=== PATIENT | male | born 1975 | race Two or more races ===

== ENCOUNTER 2018-11-29 11:34 | Emergency (ER) | payer MEDICARE, MEDICAID ==
[~2018-11-29] VITALS: Ht 121.9 cm; Wt 45.4 kg
[~2018-11-29 11:34] MED LIST: CEPHALEXIN500 MG ORAL
--- NOTE | 2018-11-29 11:34 | NUR ---
ED Nurse Note: Pt brought in by ambulance from [facility] due to flu like symptoms, Nausea. chill and headache x 1 day. SNF staff gave norco 5/325mg this morning. Denies headache at this time. Pt is AAO x4, non ambulatory (bilateral BKA) with non labored breathing. Noted wounds on left elbow, left wrist and posterior right and left thighs.
--- NOTE | 2018-11-29 11:44 | Emergency Room Report ---
History of Present Illness General Chief Complaint: Flu Like Symptoms Source: Patient, Medical Record Present Illness HPI 43-year-old malewith a history of paraplegia, suprapubic catheter, colostomy bag , sent from [facility] for headache, chills, myalgias, nausea for 2 days, given analgesics prior to arrival.patient reports that he had his suprapubic catheter changed just 2 weeks ago. He does report mild cough, denies shortness of breath,Syncope, chest pain, bladder spasms. Allergies: Coded Allergies: CEPHALEXIN (Unverified Allergy, Unknown, 11/29/18) HALOPERIDOL (Unverified Allergy, Unknown, 11/29/18) PROCAINE (Unverified Allergy, Unknown, 11/29/18) Patient History Past Medical History: see triage record Reviewed Nursing Documentation: PMH: Agreed; PSxH: Agreed Review of Systems All Other Systems: negative except mentioned in HPI Physical Exam Vital Signs Date Time Temp Pulse Resp B/P (MAP) Pulse Ox O2 Delivery O2 Flow Rate FiO2 11/29/18 11:24 97.3 74 16 117/74 95 Room Air Sp02 EP Interpretation: reviewed, normal General Appearance: no apparent distress, alert, non-toxic Head: normocephalic Eyes: bilateral eye normal inspection, bilateral eye PERRL, bilateral eye EOMI ENT: normal ENT inspection, hearing grossly normal, normal pharynx, no angioedema, normal voice, moist mucus membranes Neck: normal inspection, full range of motion, supple, supple/symm/no masses Respiratory: chest non-tender, lungs clear, normal breath sounds, chest symmetrical, palpation of chest normal Cardiovascular #1: normal peripheral pulses, regular rate, rhythm Cardiovascular #2: 2+ radial (R), 2+ radial (L) Gastrointestinal: normal inspection, non tender, soft, no mass, no guarding, no rebound, other - Left-sided colostomy bag with normal brown urine, no overlying erythema warmth or tenderness, suprapubic catheter site with no erythema, clean, dry Rectal: deferred Genitourinary: normal inspection, no CVA tenderness Musculoskeletal: back normal, non-tender Neurologic: alert, responsive, emergency department III-XII nml as tested, motor strength/tone normal - All Extremities with mild weakness, sensory intact, speech normal Psychiatric: judgement/insight normal, memory normal, mood/affect normal Skin: normal color, no rash, warm/dry, normal turgor Lymphatic: no adenopathy Medical Decision Making Diagnostic Impression: Primary Impression: Influenza-like symptoms ER Course Patient refusing IV, refused lab draws, but did have a chest x-ray which is fairly unremarkable, and he will leave AGAINST MEDICAL ADVICE back to intermediate facility. He understands that I have not evaluated him for such as sepsis since he refused this and he is at risk of . Chest X-Ray Diagnostic Results Chest X-Ray Diagnostic Results : Chest X-Ray Ordered: Yes # of Views/Limited/Complete: 1 View Indication: Other EP Interpretation: No Impression: No acute disease - read by radiologist Last Vital Signs Date Time Temp Pulse Resp B/P (MAP) Pulse Ox O2 Delivery O2 Flow Rate FiO2 11/29/18 11:24 97.3 74 16 117/74 95 Room Air BIRGIT WONG M.D Nov 29, 2018 11:44
[2018-11-29] MEDS ORDERED: Sodium Chloride 1,400 ML IVLG ONE (11:45)
[2018-11-29] MEDS ORDERED: NORCO 5-325 TA1 EACH ORAL (11:52)
[2018-11-29] MEDS ORDERED: SILVADENE20 GM TP (11:52)
[2018-11-29] MEDS ORDERED: PROTONIX40 MG ORAL (11:52)
[2018-11-29] MEDS ORDERED: TRAMADOL HCL50 MG ORAL (11:52)
[2018-11-29] MEDS ORDERED: CLINDAMYCIN HC150 MG ORAL (11:52)
[2018-11-29] MEDS ORDERED: SENNA8.6 M2 PO (11:52)
[2018-11-29] MEDS ORDERED: Cefepime HCl 1 GM in NS 55 ML IV SCH (12:00)
--- NOTE | 2018-11-29 12:06 | NUR ---
ED Nurse Note: Pt refused blood and urine test, EKG. Pt only wants Flu swab test. Dr Padilla notified. Pt signed AMA form.
--- NOTE | 2018-11-29 12:15 | NUR ---
ED Nurse Note: Pt refused antibiotics and NS medication. Dr Padilla is aware.
--- NOTE | 2018-11-29 12:39 | Diagnostic Imaging Report ---
EXAM: XR Chest, 1 View CLINICAL HISTORY: COUGH TECHNIQUE: Frontal view of the chest. COMPARISON: No relevant prior studies available. FINDINGS: Lungs: Mildly increased interstitial markings. The lungs are otherwise clear without focal consolidation. Pleural space: Unremarkable. The costophrenic angles are sharp. No visible pneumothorax. Heart: Unremarkable. No cardiomegaly. Mediastinum: Unremarkable. Bones/joints: Partial visualization of lower cervical spine fixation hardware. Tubes, lines and devices: Telemetry leads overlie the thorax. IMPRESSION: Mildly increased interstitial markings. This is nonspecific but may suggest mild pulmonary vascular congestion or a mild interstitial pneumonitis. No focal consolidation.
[2018-11-29 12:44] VITALS: BP 110/68
--- NOTE | 2018-11-29 13:06 | NUR ---
patient refuses to have labs done wants to go back to longterm . has been notified . per dr cardenas he will discharge the patient [facility] called
[2018-11-29 13:19] VITALS: BP 110/68
== END 2018-11-29 13:00 | disposition home or self-care (01) ==
LOC: EDBD 11:34 → EMR 12:00
DX: J11.1 Influenza due to unidentified influenza virus with other respiratory manifestations (principal); Z88.1 Allergy status to other antibiotic agents; Z88.8 Allergy status to other drugs, medicaments and biological substances
CPT/HCPCS: 71045; 86710; 93005; 96374; 99284

== ENCOUNTER 2019-06-07 10:16 | Inpatient (IN) | payer MEDICARE, MEDICAID ==
[~2019-06-07] VITALS: Ht 152.4 cm; Wt 73.9 kg
[~2019-06-07 10:16] MED LIST changes: +CLINDAMYCIN HC150 MG ORAL; +NORCO 5-325 TA1 EACH ORAL; +PROTONIX40 MG ORAL; +SENNA8.6 M2 PO; +SILVADENE20 GM TP; +TRAMADOL HCL50 MG ORAL
[2019-06-07 10:30] VITALS: BP 111/74
--- NOTE | 2019-06-07 10:30 | NUR ---
ED Nurse Note: Patient brought in by ambulance from the [facility] c/o pain located on his lower back, patient presents with multiple wounds, one on his left elbow that is open and draining, one on his lower back that extends to his hamstrings, unstageable however it is draining, patient states that he recently signed out from [facility] due to no improvement in his wound. patient also presents with supra pubic catheter that is draining as well a a colostomy bag. patient is alert and oriented x4 and has a wheelchair.
[2019-06-07] MEDS ORDERED: Vancomycin 1.5 GM in NS 275 ML IVPB ONE (10:45)
[2019-06-07] MEDS ORDERED: Piperacillin/Tazobactam 3.375 GM in NS 110 ML IVPB ONE (10:45)
[2019-06-07] MEDS ORDERED: HYDROcodone/Acetamin 7.5/325 tab ORAL ONE (10:45)
--- NOTE | 2019-06-07 10:45 | NUR ---
ED Nurse Note: Patient refused any form of IV, states that he will not tolerate IV on his arm. Dr. Jenkins notified and aware
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
--- NOTE | 2019-06-07 11:45 | NUR ---
ED Nurse Note: Called Laboratory for a blood draw
[2019-06-07 12:41] VITALS: BP_SYST 107; BP_SYST 120; BP_DIAS 70
--- NOTE | 2019-06-07 13:00 | NUR ---
ED Nurse Note: Dr. Dunlap at bedside, states that the patient is okay to go up with no IV access, patient will be getting a picc line tomorrow
[2019-06-07 13:46] LABS: HEMATOCRIT 33.1 % (42.0-52.0); HEMOGLOBIN 9.3 G/DL (14.2-18.0); MEAN CORPUSCULAR VOLUME 73 FL (80-99); PLATELET COUNT 348 K/UL (150-450); RED BLOOD COUNT 4.54 M/UL (4.70-6.10); RED CELL DISTRIBUTION WIDTH 16.4 % (11.6-14.8); WHITE BLOOD COUNT 10.9 K/UL (4.8-10.8)
[2019-06-07 13:59] LABS: ANION GAP 12 mmol/L (5-15); BLOOD UREA NITROGEN 8 mg/dL (7-18); CALCIUM 8.9 MG/DL (8.5-10.1); CARBON DIOXIDE 22 MMOL/L (21-32); CHLORIDE 101 MMOL/L (98-107); CREATININE 0.8 MG/DL (0.55-1.30); POTASSIUM 3.7 MMOL/L (3.5-5.1); SODIUM 135 MMOL/L (136-145)
[2019-06-07 14:06] LABS: ALANINE AMINOTRANSFERASE 13 U/L (12-78); ALBUMIN 2.7 G/DL (3.4-5.0); ALBUMIN/GLOBULIN RATIO 0.5 (1.0-2.7); ALKALINE PHOSPHATASE 111 U/L (46-116); ASPARTATE AMINO TRANSFERASE 25 U/L (15-37); BILIRUBIN,TOTAL 0.7 MG/DL (0.2-1.0); CREATINE KINASE 106 U/L (26-308); PHOSPHORUS 3.6 MG/DL (2.5-4.9)
[2019-06-07] MEDS ORDERED: Lidocaine 1% MPF 10mg/ml 5ml INJ ONE (14:15)
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
[2019-06-07 14:23] VITALS: BP 93/51
[2019-06-07] MEDS ORDERED: Milk of Magnesia 30ml Ud ORAL PRN (14:30)
[2019-06-07] MEDS ORDERED: Mylanta II UD 30ml ORAL PRN (14:30)
--- NOTE | 2019-06-07 14:45 | NUR ---
TRANSFER TO FLOOR: Patient transferred to Med-Surg as ordered, per report given to LAURA Bauer
[2019-06-07] MEDS ORDERED: UNOBMED (14:59)
[2019-06-07] MEDS: LORazepam 1mg tab ORAL PRN ×2 (15:42→20:03)
--- NOTE | 2019-06-07 15:45 | NUR ---
NURSE NOTES: Received pt at room 416-1. Patient upset, anxious, refused bedside RN to check his belongings, also refused physical examination and pictures. Given Ativan PO as ordered PRN and per pt request. Pt refused to answer nurses questioning for admission assessments, saying: I'm tired, I want to sleep now. CASH SALES AUDIT CLERK Jolanta witness.
[2019-06-07 16:00] VITALS: BP 123/63
--- NOTE | 2019-06-07 16:08 | NUR ---
NURSE NOTES: Patient transferred from ER via gurney. Report received from Pallavi Marie reviewed with patient. Per patient no lim or credit cards. Patient has [employer] phone and head phones at bedside. Patient has suprapubic catheter. Patient is alert and oriented. Call light placed within reach. Will continue to monitor.
[2019-06-07] MEDS ORDERED: Heparin1,000 units/500ml Premix(Conc:2 units/ml) IV PRN (16:58)
[2019-06-07] MEDS ORDERED: Lidocaine 1% Plain 30 ml INJ PRN (16:58)
--- NOTE | 2019-06-07 18:31 | NUR ---
NURSE NOTES: not done initial wound assessment as pt didn't allow nurse to see his wounds or take pic of them.
--- NOTE | 2019-06-07 19:13 | NUR ---
HAND-OFF: Report given to LAURA Yeh.
--- NOTE | 2019-06-07 20:00 | NUR ---
NURSE NOTES: Pt received from outgoing nurse LAURA Santos. Pt is in bed sitting down. Pt is anxious, implosive, aggressive, resistive to care. Pt complains of severe headache, requesting stronger pain medication. Dr. Mendez was called and received order for Percocet 10/325mg po q4hrs for severe pain. Pt refuses to have physical assessment done. pt refuses heparin for dvt prophylaxis and Colace. Pt has suprapubic cath which is draining yellow urine. Colostomy bag draining brown stool. Pt refuses to allow RN to empty colostomy bag. Pt refuses to allow RN to assess wound and provide wound care. Photos of wounds were taken in the ER, pt refuses wound pictures now. Pt is provided with reality orientation and education. Fall precaution in place. Bed alarm on. Bed locked low in position,side rails up and call light within reach. Pt will be monitored.
[2019-06-07] MEDS: Heparin 5000 units/ml inj SUBQ SCH (20:35)
[2019-06-07] MEDS: Docusate 100mg cap ORAL SCH (20:35)
[2019-06-07] MEDS: Piperacillin/Tazobactam 3.375 GM in NS 110 ML IVPB SCH (22:00)
[2019-06-08] VITALS: BP 115/74
--- NOTE | 2019-06-08 02:53 | NUR ---
NURSE NOTES: Pt is in bed, asleep. No acute distress noted.
[2019-06-08] MEDS: Piperacillin/Tazobactam 3.375 GM in NS 110 ML IVPB SCH ×3 (05:05→21:04)
[2019-06-08] MEDS: LORazepam 1mg tab ORAL PRN ×4 (05:32→21:03)
--- NOTE | 2019-06-08 06:46 | NUR ---
NURSE NOTES: Pt refused blood draw for labs and wound care . Colostomy bag replaced. Pt refuses to be cleaned.
--- NOTE | 2019-06-08 07:15 | NUR ---
HAND-OFF: Report given to Vicky García RN.
--- NOTE | 2019-06-08 07:52 | NUR ---
NURSE NOTES: Patient received in stable condition, eating breakfast in bed. Alert and oriented. PICC line scheduled to be placed today. No apparent signs of distress noted. Bed locked in lowest position, call light placed within reach. Will continue to monitor.
[2019-06-08 08:00] VITALS: BP 120/77
[2019-06-08] MEDS: Heparin 5000 units/ml inj SUBQ SCH ×2 (09:00→21:00)
[2019-06-08] MEDS: Docusate 100mg cap ORAL SCH ×2 (09:00→21:00)
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
--- NOTE | 2019-06-08 11:50 | NUR ---
P.T Note: P.T evaluation completed . Pt is alert O x 4. Pt. presented incomplete quadriplegia from old hx of CVA, B flexion contracture of hand/fingers and B AKA limiting his functional mobilities and self care ability. Pt is totally dependent in areas of bed mobilities and transfer activities as he was prior to admission where nursing staff uses the [facility] for OOB to W/C transfer. Pt is already at baseline function and not a candidate for skilled P.T services. [facility] P[facility]T service. Thank you for this referral. Addendum: 06/08/19 at 1204 by ARIEL VALVERDE PT P.T Note: P.T evaluation completed . Pt is alert O x 4. Pt. presented incomplete quadriplegia from old hx of CVA, B flexion contracture of hand/fingers and B AKA limiting his functional mobilities and self care ability. Pt is totally dependent in areas of bed mobilities and transfer activities as he was prior to admission where nursing staff uses the [facility] for OOB to W/C transfer in the facility where he came from . Pt is already at baseline function and not a candidate for skilled P.T services. [facility] service. Thank you for this referral.
[2019-06-08 12:00] VITALS: BP 124/80
--- NOTE | 2019-06-08 13:23 | Surgery Progress Note ---
Surgery Progress Note Subjective Additional Comments Patient seen and examined bedside. No acute events. Labs noted. Leukocytosis and elevated ESR and CRP. Abnormal electrolytes. Patient still losing foul- smelling seropurulent fluid. Objective Last 24 Hour Vital Signs Date Time Temp Pulse Resp B/P (MAP) Pulse Ox O2 Delivery O2 Flow Rate FiO2 06/08/19 12:00 98.3 85 20 124/80 (95) 98 06/08/19 09:00 Room Air 06/08/19 08:00 98.8 90 20 120/77 (91) 99 06/08/19 06:02 98.9 06/08/19 00:00 100.4 93 20 115/74 (88) 98 06/07/19 21:00 Room Air 06/07/19 18:00 Room Air 06/07/19 16:00 97.3 104 25 123/63 (83) 96 06/07/19 14:45 98.7 95 16 93/51 96 Room Air 06/07/19 14:23 98.7 90 16 93/51 96 Room Air I&O Intake and Output 06/07/19 06/08/19 19:00 07:00 Intake Total 50 ml Output Total 1400 ml Balance 50 ml -1400 ml Intake Oral 50 ml Output Urine Total 800 ml Stool Total 600 ml Dressing: saturated Wound: other Drains: other Cardiovascular: RSR Respiratory: clear Abdomen: soft, non-tender, present bowel sounds, other - Colostomy Extremities: other - superpubic catheter bilateral amputations Laboratory Tests Test 06/07/19 13:25 06/07/19 13:55 White Blood Count 10.9 K/UL (4.8-10.8) H Red Blood Count 4.54 M/UL (4.70-6.10) L Hemoglobin 9.3 G/DL (14.2-18.0) L Hematocrit 33.1 % (42.0-52.0) L Mean Corpuscular Volume 73 FL (80-99) L Mean Corpuscular Hemoglobin 20.5 PG (27.0-31.0) L Mean Corpuscular Hemoglobin Concent 28.2 G/DL (32.0-36.0) L Red Cell Distribution Width 16.4 % (11.6-14.8) H Platelet Count 348 K/UL (150-450) Mean Platelet Volume 6.3 FL (6.5-10.1) L Neutrophils (%) (Auto) % (45.0-75.0) Lymphocytes (%) (Auto) % (20.0-45.0) Monocytes (%) (Auto) % (1.0-10.0) Eosinophils (%) (Auto) % (0.0-3.0) Basophils (%) (Auto) % (0.0-2.0) Differential Total Cells Counted 100 Neutrophils % (Manual) 89 % (45-75) H Lymphocytes % (Manual) 4 % (20-45) L Monocytes % (Manual) 7 % (1-10) Eosinophils % (Manual) 0 % (0-3) Basophils % (Manual) 0 % (0-2) Band Neutrophils 0 % (0-8) Platelet Estimate Adequate Platelet Morphology Normal Hypochromasia 1+ Anisocytosis 1+ Microcytosis 1+ Lactic Acid Level 0.80 mmol/L (0.4-2.0) C-Reactive Protein, Quantitative > 70.0 mg/dL (0.00-0.90) H Erythrocyte Sedimentation Rate 88 MM/HR (0-15) H Sodium Level 135 MMOL/L (136-145) L Potassium Level 3.7 MMOL/L (3.5-5.1) Chloride Level 101 MMOL/L (98-107) Carbon Dioxide Level 22 MMOL/L (21-32) Anion Gap 12 mmol/L (5-15) Blood Urea Nitrogen 8 mg/dL (7-18) Creatinine 0.8 MG/DL (0.55-1.30) Estimat Glomerular Filtration Rate > 60 mL/min (>60) Glucose Level 106 MG/DL (74-106) Calcium Level 8.9 MG/DL (8.5-10.1) Phosphorus Level 3.6 MG/DL (2.5-4.9) Magnesium Level 2.0 MG/DL (1.8-2.4) Total Bilirubin 0.7 MG/DL (0.2-1.0) Aspartate Amino Transf (AST/SGOT) 25 U/L (15-37) Alanine Aminotransferase (ALT/SGPT) 13 U/L (12-78) Alkaline Phosphatase 111 U/L (46-116) Total Creatine Kinase 106 U/L (26-308) Total Protein 8.6 G/DL (6.4-8.2) H Albumin 2.7 G/DL (3.4-5.0) L Globulin 5.9 g/dL Albumin/Globulin Ratio 0.5 (1.0-2.7) L Plan Problems: (1) Infected ulcer of skin Assessment & Plan: This is a 43-year-old male wheelchair-bound bilateral lower extremity amputation with chronic infected large sacral decubitus ulcer. Patient with colostomy and suprapubic catheter. Patient has had these wounds for a long time and they have been infected for a significant period time as well. Patient is fairly noncompliant with care plans. Discussions had with patient prior for care plan and appropriate wound care but patient continues to be fairly noncompliant with care. Patient recently left lumbar rehab as he felt wounds are being worse and he was not being cared for properly. He presents here and even in the emergency department is fairly noncompliant with care as he refuses IV access and states that he can be ready to leave if he does not get the care that he wants in the manner that he wants. Large stage IV sacral decubitus ulcer with foul smell, seropurulent drainage, exposed bone, macerated periwound, or cyst seen prior Left elbow stage IV decubitus ulcer with 100% slough, serous drainage, foul odor Intact colostomy functional viable with parastomal hernia Suprapubic catheter with insertion site chronic poor wound healing wound Recommend admission for further care and management. Will continue to assess and come up with full care plan for patient and his management. Still do recommend tertiary center as a small commute hospital does not have the resources and the ability to care for such extensive large wound and patient with complex medical and surgical history we will continue to treat patient to the best of abilities with the resources available at this time. PICC line Abx will likely need OR CT Pelvis Thank you for allowing me participate patient's care (2) Decubitus skin ulcer (3) Elbow pain Assessment & Plan: Related to large decubitus ulcer that is open with 100% slough. We will continue with local wound care. Recommend antibiotics. will likely need debridement. MRI ordered Additional Comments ID input appreciated PICC? cont wound care Yoav Dunlap Jun 08, 2019 13:23
--- NOTE | 2019-06-08 15:02 | NUR ---
Social Service Note SW met with patient to asses for homelessness. Patient is alert, oriented and verbally responsive. Patient states he was a resident of [facility] 05/08-06/07 at which time he signed out AMA. Patient states he was unhappy with care and decided to leave with no housing plan. Patient states he has been homeless for several years and that he knows how to work through the system. Patient also had a previous stay at [facility] in November 2018. Patient with a history of ETOH abuse and opioid dependency and denies mental health issues. Patient states he receives $700 a month. Patient denies knowing emergency contact Baron Montoya [phone] and Monique Wilson [phone]. Patient commented that he has no family and only has some friends. Patient's w/c at bedside. Patient states he is independent with transfers and is able to provide wound care. Patient states he has had a conversation with Dr. Mendez regarding alternative SNF placement upon discharge. Placement not determined at this time. Will continue to monitor and assist as needed.
--- NOTE | 2019-06-08 15:51 | NUR ---
NURSE NOTES: Patient is refusing all IV access. Patient is refusing CT or any further testing. Patient stated he will, "wait 3 days and go to SNF." made aware.
--- NOTE | 2019-06-08 15:59 | NUR ---
NURSE NOTES:WOUND CARE NOTES:P declined for wound to be assessed by wound nurse. Pt stated he wanted to wait for surgeon. Pt advised wound and assessment and treatment is done by nurse as part of care. Pt still declined stating he wanted to wait for surgeon.
[2019-06-08 16:00] VITALS: BP 118/79
--- NOTE | 2019-06-08 19:35 | NUR ---
HAND-OFF: Report given to Lorie SANCHEZ.
--- NOTE | 2019-06-08 19:53 | NUR ---
NURSE NOTES: Received patient awake,alert,verbal,on bedrest,non-compliant.
[2019-06-08 20:00] VITALS: BP 105/66
[2019-06-08] MEDS: Dyna-Hex 2% Top Sol 2oz TOPIC SCH (20:00)
[2019-06-09] VITALS: BP 104/56
[2019-06-09 04:00] VITALS: BP 144/90
[2019-06-09] MEDS: Piperacillin/Tazobactam 3.375 GM in NS 110 ML IVPB SCH ×3 (06:00→21:08)
--- NOTE | 2019-06-09 07:07 | NUR ---
HAND-OFF: Report given to Chetna Mace RN.
[2019-06-09 08:00] VITALS: BP 133/84
[2019-06-09] MEDS: Docusate 100mg cap ORAL SCH ×2 (09:00→21:00)
[2019-06-09] MEDS: Heparin 5000 units/ml inj SUBQ SCH ×2 (09:00→21:00)
--- NOTE | 2019-06-09 09:06 | General Progress Note ---
Assessment/Plan Problem List: (1) Decubitus skin ulcer ICD Codes: L89.90 - Pressure ulcer of unspecified site, unspecified stage SNOMED: 123683563 (2) Elbow pain ICD Codes: M25.529 - Pain in unspecified elbow SNOMED: 89403903 (3) UTI (urinary tract infection) ICD Codes: N39.0 - Urinary tract infection, site not specified SNOMED: 13034512 (4) Drug-seeking behavior ICD Codes: Z76.5 - Malingerer [conscious simulation] SNOMED: 438530976 (5) Infected ulcer of skin ICD Codes: L98.499 - Non-pressure chronic ulcer of skin of other sites with unspecified severity; L08.9 - Local infection of the skin and subcutaneous tissue, unspecified SNOMED: 8169091 Status: stable, not improved Assessment/Plan: dc planning to snf pt refusing all treatment risks d/w pt at length Subjective ROS Limited/Unobtainable: No Constitutional: Reports: malaise HEENT: Reports: no symptoms Cardiovascular: Reports: no symptoms Respiratory: Reports: no symptoms Gastrointestinal/Abdominal: Reports: no symptoms Genitourinary: Reports: no symptoms Neurologic/Psychiatric: Reports: pre-existing deficit Endocrine: Reports: no symptoms Hematologic/Lymphatic: Reports: no symptoms Allergies: Coded Allergies: CEPHALEXIN (Unverified Allergy, Unknown, 11/29/18) HALOPERIDOL (Unverified Allergy, Unknown, 11/29/18) LEVOFLOXACIN (Verified Allergy, Unknown, 06/07/19) PROCAINE (Unverified Allergy, Unknown, 11/29/18) All Systems: reviewed and negative except above Subjective refusing iv and picc line. refusing wound care. risk including worsening infection, sepsis and explained to pt. Pt voiced his understanding. Objective Last 24 Hour Vital Signs Date Time Temp Pulse Resp B/P (MAP) Pulse Ox O2 Delivery O2 Flow Rate FiO2 06/09/19 04:00 98.1 75 18 144/90 (108) 97 06/09/19 00:00 98.2 82 18 104/56 (72) 95 06/08/19 21:33 98.6 06/08/19 20:25 Room Air 06/08/19 20:00 98.1 81 18 105/66 (79) 97 06/08/19 16:00 98.6 92 18 118/79 (92) 99 06/08/19 12:00 98.3 85 20 124/80 (95) 98 Intake and Output 06/08/19 06/09/19 19:00 07:00 Intake Total 860 ml Output Total 1600 ml 2300 ml Balance -740 ml -2300 ml Intake Oral 860 ml Output Urine Total 1600 ml 2300 ml Height (Feet): 5 Height (Inches): 0.00 Weight (Pounds): 200 General Appearance: WD/WN, alert Neck: supple Respiratory/Chest: lungs clear Abdomen: normal bowel sounds, non tender, soft, no organomegaly Objective massive sacral wound Marlon Mendez MD Jun 09, 2019 09:06
[2019-06-09] MEDS: LORazepam 1mg tab ORAL PRN ×2 (09:20→16:04)
--- NOTE | 2019-06-09 09:45 | NUR ---
NURSE NOTES: Patient in stable condition, watching television. Breathing unlabored on room air. Pain medication administered. Needs attended to. Call light placed within reach. Will continue to monitor. CT test cancelled as patient refused.
--- NOTE | 2019-06-09 10:32 | NUR ---
*-* INSURANCE *-* ALL AVAILABLE CLINICALS HAVE BEEN FAXED TO: [employer] Tracking#[id number] No Dry Chain Worker assigned at the moment
[2019-06-09 11:57] VITALS: BP 102/62
--- NOTE | 2019-06-09 15:22 | Surgery Progress Note ---
Surgery Progress Note Subjective Additional Comments Patient continues to refuse vitals labs and care plan. He refuses IV, PICC line , MRI, CT, plain films, surgical debridement intervention. At this point he states he does not want anything further done and just wants to be the way he is. Objective Last 24 Hour Vital Signs Date Time Temp Pulse Resp B/P (MAP) Pulse Ox O2 Delivery O2 Flow Rate FiO2 06/09/19 11:57 97.8 74 16 102/62 (75) 100 06/09/19 09:00 Room Air 06/09/19 08:00 97.9 90 22 133/84 (100) 95 06/09/19 04:00 98.1 75 18 144/90 (108) 97 06/09/19 00:00 98.2 82 18 104/56 (72) 95 06/08/19 21:33 98.6 06/08/19 20:25 Room Air 06/08/19 20:00 98.1 81 18 105/66 (79) 97 06/08/19 16:00 98.6 92 18 118/79 (92) 99 I&O Intake and Output 06/08/19 06/09/19 18:59 06:59 Intake Total 860 ml Output Total 1600 ml 2300 ml Balance -740 ml -2300 ml Intake Oral 860 ml Output Urine Total 1600 ml 2300 ml Dressing: saturated, other Wound: other Drains: other Cardiovascular: RSR Respiratory: clear Abdomen: soft, non-tender, other Extremities: other Plan Problems: (1) Infected ulcer of skin Assessment & Plan: This is a 43-year-old male wheelchair-bound bilateral lower extremity amputation with chronic infected large sacral decubitus ulcer. Patient with colostomy and suprapubic catheter. Patient has had these wounds for a long time and they have been infected for a significant period time as well. Patient is fairly noncompliant with care plans. Discussions had with patient prior for care plan and appropriate wound care but patient continues to be fairly noncompliant with care. Patient recently left lumbar rehab as he felt wounds are being worse and he was not being cared for properly. He presents here and even in the emergency department is fairly noncompliant with care as he refuses IV access and states that he can be ready to leave if he does not get the care that he wants in the manner that he wants. Large stage IV sacral decubitus ulcer with foul smell, seropurulent drainage, exposed bone, macerated periwound, or cyst seen prior Left elbow stage IV decubitus ulcer with 100% slough, serous drainage, foul odor Intact colostomy functional viable with parastomal hernia Suprapubic catheter with insertion site chronic poor wound healing wound Recommend admission for further care and management. Will continue to assess and come up with full care plan for patient and his management. Still do recommend tertiary center as a small [facility] hospital does not have the resources and the ability to care for such extensive large wound and patient with complex medical and surgical history we will continue to treat patient to the best of abilities with the resources available at this time. Patient refusing all further intervention and care plans. Unfortunately he does not want anything further done here and stands a risk to his choices. At this point he does not even allow for any wound care despite having greg saturated wounds DC planning Thank you for allowing me participate patient's care (2) Decubitus skin ulcer (3) Elbow pain Assessment & Plan: Related to large decubitus ulcer that is open with 100% slough. We will continue with local wound care. Recommend antibiotics. will likely need debridement. MRI ordered Yoav Dunlap Jun 09, 2019 15:22
[2019-06-09 16:00] VITALS: BP 95/58
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
--- NOTE | 2019-06-09 19:36 | NUR ---
HAND-OFF: Report given to AMY SANCHEZ.
--- NOTE | 2019-06-09 19:44 | NUR ---
NURSE NOTES: Received patient awake,alert,verbal,resting in bed without complaints.
[2019-06-09 20:00] VITALS: BP 99/66
[2019-06-09] MEDS: Dyna-Hex 2% Top Sol 2oz TOPIC SCH (20:00)
[2019-06-10] VITALS: BP 107/60
[2019-06-10] MEDS: LORazepam 1mg tab ORAL PRN (01:34)
[2019-06-10 04:08] VITALS: BP 110/70
[2019-06-10] MEDS: Piperacillin/Tazobactam 3.375 GM in NS 110 ML IVPB SCH (06:00)
--- NOTE | 2019-06-10 07:24 | NUR ---
HAND-OFF: Report given to Manny Sin RN.
--- NOTE | 2019-06-10 07:36 | NUR ---
NURSE NOTES: Received report from LAURA Lowry. Patient in bed resting, no active s/s cardiac, respiratory distress noticed at this time. Patient on room air. Suprapubic catheter draining well to gravity, colostomy bag on. No IV site, endorsed MD made aware. Endorsed patient refused CT of pelvis. Bed in lowest position, side rails upx3, call light within reach .Will continue to monitor.
[2019-06-10] MEDS: Heparin 5000 units/ml inj SUBQ SCH (09:00)
[2019-06-10] MEDS: Docusate 100mg cap ORAL SCH (09:00)
--- NOTE | 2019-06-10 09:25 | NUR ---
CASE MANAGEMENT:REVIEW 43 YR OLD MALE [facility]IBA [facility]; HIP PAIN PMH: SUPRAPUBIC CATHETER. COLOSTOMY. WHEELCHAIR BOUND SI: WOUND INFECTION 100.0 97 16 111/74 96% ON RA WBC+10.9 H/H-9.3/33.1 ESR+88 IS: IV VANCOMYCIN IV ZOSYN NORCO PO BLOOD AND URINE CULTURE : TO MED/SURG
--- NOTE | 2019-06-10 09:30 | General Progress Note ---
Assessment/Plan Problem List: (1) Decubitus skin ulcer ICD Codes: L89.90 - Pressure ulcer of unspecified site, unspecified stage SNOMED: 052257059 (2) Elbow pain ICD Codes: M25.529 - Pain in unspecified elbow SNOMED: 62085496 (3) UTI (urinary tract infection) ICD Codes: N39.0 - Urinary tract infection, site not specified SNOMED: 79762272 (4) Drug-seeking behavior ICD Codes: Z76.5 - Malingerer [conscious simulation] SNOMED: 075368516 (5) Infected ulcer of skin ICD Codes: L98.499 - Non-pressure chronic ulcer of skin of other sites with unspecified severity; L08.9 - Local infection of the skin and subcutaneous tissue, unspecified SNOMED: 8022292 Status: stable, not improved Assessment/Plan: dc planning to snf pt refusing all treatment risks d/w pt at length Subjective ROS Limited/Unobtainable: No Constitutional: Reports: malaise, weakness HEENT: Reports: no symptoms Cardiovascular: Reports: no symptoms Respiratory: Reports: no symptoms Gastrointestinal/Abdominal: Reports: no symptoms Genitourinary: Reports: no symptoms Neurologic/Psychiatric: Reports: pre-existing deficit Endocrine: Reports: no symptoms Hematologic/Lymphatic: Reports: no symptoms Allergies: Coded Allergies: CEPHALEXIN (Unverified Allergy, Unknown, 11/29/18) HALOPERIDOL (Unverified Allergy, Unknown, 11/29/18) LEVOFLOXACIN (Verified Allergy, Unknown, 06/07/19) PROCAINE (Unverified Allergy, Unknown, 11/29/18) All Systems: reviewed and negative except above Subjective no events, w/o complaints. refusing iv/picc. refusing wound care. refusing repositioning Objective Last 24 Hour Vital Signs Date Time Temp Pulse Resp B/P (MAP) Pulse Ox O2 Delivery O2 Flow Rate FiO2 06/10/19 04:08 97.9 74 18 110/70 (83) 97 06/10/19 00:00 98.0 74 18 107/60 (76) 97 06/09/19 23:41 98.1 06/09/19 20:15 Room Air 06/09/19 20:00 98.1 82 18 99/66 (77) 96 06/09/19 16:00 98.0 70 18 95/58 (70) 97 06/09/19 11:57 97.8 74 16 102/62 (75) 100 Intake and Output 06/09/19 06/10/19 19:00 07:00 Intake Total 1600 ml Output Total 1400 ml 2000 ml Balance 200 ml -2000 ml Intake Oral 1600 ml Output Urine Total 1400 ml 2000 ml Height (Feet): 5 Height (Inches): 0.00 Weight (Pounds): 163 Objective massive sacral wound Marlon Mendez MD Jun 10, 2019 09:30
--- NOTE | 2019-06-10 10:05 | NUR ---
NURSE NOTES: Patient AOx4, stated wanted to sign AMA. Patient stated he will go cousin's house via Taxi. Transportation offered, patient refused and stated will call taxi by himself. Patient refused to get treatment for wound prior to leave. Patient informed refusal of crucial diagnostic testing, treatment, procedure. Offered transportation, meal, medication, screening for infectious disease, follow up behavioral health care. Patient refused to get information. Patient wearing own cloth, adequate for the weather. Patient signed AMA, left via wheelchair, with all belongings. Dr. Mendez made aware.
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
--- NOTE | 2019-06-11 14:27 | NUR ---
*-* INSURANCE *-* DISCHARGE SUMMARY HAS BEEN FAXED TO: [facility]#[id number] No Director Power assigned at the moment
== END 2019-06-10 10:05 | disposition left against medical advice (07) | DRG 380 ==
LOC: EDBD 10:16 → EMR 10:45 → 4E 11:01 → EDBEDREQ 13:05 → 4E 15:31
DX: L89.154 Pressure ulcer of sacral region, stage 4 (principal); L89.024 Pressure ulcer of left elbow, stage 4; G82.50 Quadriplegia, unspecified; Z88.1 Allergy status to other antibiotic agents; Z88.8 Allergy status to other drugs, medicaments and biological substances; W34.00XS Accidental discharge from unspecified firearms or gun, sequela; N39.0 Urinary tract infection, site not specified; B96.1 Klebsiella pneumoniae [K. pneumoniae] as the cause of diseases classified elsewhere; B96.4 Proteus (mirabilis) (morganii) as the cause of diseases classified elsewhere; B96.5 Pseudomonas (aeruginosa) (mallei) (pseudomallei) as the cause of diseases classified elsewhere; B95.0 Streptococcus, group A, as the cause of diseases classified elsewhere; Z16.12 Extended spectrum beta lactamase (ESBL) resistance; Z76.5 Malingerer [conscious simulation]; Z89.612 Acquired absence of left leg above knee; Z89.611 Acquired absence of right leg above knee; Z59.0 Homelessness; Z91.19 Patient's noncompliance with other medical treatment and regimen; Z99.3 Dependence on wheelchair; K43.5 Parastomal hernia without obstruction or gangrene; Z93.3 Colostomy status
CPT/HCPCS: 36415; 80053; 82550; 83605; 83735; 84100; 85007; 85025; 85651; 86140; 87040; 87070; 87081; 87086; 87181; 87205; 96372; 96374; 99285